=== PATIENT | male | born 1960 | race Caucasian/White ===

== ENCOUNTER 2017-02-20 14:49 | Emergency (ER) | payer OTHER ==
[~2017-02-20 14:49] MED LIST: CIPRO PO; CRESTOR5 MG PO; FLOMAX0.4 M1 PO; PERCOCET 7.5-31 EACH PO; PYRIDIUM PO
== END 2017-02-20 16:05 | disposition home or self-care (01) ==
LOC: CED 14:49
DX: L02.212 Cutaneous abscess of back [any part, except buttock and flank] (principal); Z98.890 Other specified postprocedural states; Z87.891 Personal history of nicotine dependence
CPT/HCPCS: 10060; 99283

== ENCOUNTER 2017-07-17 07:47 | Emergency (ER) | payer OTHER ==
[~2017-07-17] VITALS: Ht 175.3 cm; Wt 123.5 kg
== END 2017-07-17 08:45 | disposition home or self-care (01) ==
LOC: CED 07:47
DX: M43.6 Torticollis (principal); R03.0 Elevated blood-pressure reading, without diagnosis of hypertension; E78.5 Hyperlipidemia, unspecified
CPT/HCPCS: 99283